=== PATIENT | male | born 1990 | race Caucasian/White ===

== ENCOUNTER 2018-04-02 21:33 | Emergency (ER) | payer MEDICAID ==
[~2018-04-02] VITALS: Ht 154.9 cm; Wt 54.9 kg
[~2018-04-02 21:33] MED LIST: ARIMIDEX1 MG PO; REMERON15 MG PO
[2018-04-02 22:14] VITALS: BP 96/55
[2018-04-02] MEDS ORDERED: PROSCAR 5MG TABL5 MG PO (22:19)
[2018-04-02] MEDS ORDERED: FLOMAX0.4 MG PO (22:19)
[2018-04-02] MEDS ORDERED: IBUPROFEN 600600 M1 PO (23:09)
[2018-04-02] MEDS ORDERED: FLEXERIL PO (23:09)
== END 2018-04-02 22:35 | disposition home or self-care (01) ==
LOC: ER 21:33
DX: M25.512 Pain in left shoulder (principal); Z88.1 Allergy status to other antibiotic agents; Z88.8 Allergy status to other drugs, medicaments and biological substances